=== PATIENT | female | born 1975 | race Hispanic/Latino ===

== ENCOUNTER 2018-07-01 09:22 | Emergency (ER) | payer OTHER ==
[2018-07-01 09:48] LABS: Clarity Hazy (Clear); Glucose, Urine (Dipstick) 500 mg/dL (Negative); Leukocyte Moderate (Negative); Nitrite Negative (Negative); Protein, Urine (Dipstick) Negative (Neg-Trace); Urobilinogen 0.2 mg/dL (0.2-1.0); pH, Urine 6.5 (5.0-9.0)
[2018-07-01 09:49] LABS: Bilirubin Negative (Negative); Blood, Urine Moderate (Negative); RBC/HPF 0-3 HPF (0-3)
[2018-07-01 09:50] LABS: Bacteria/HPF 3+ HPF (None Seen); Squamous Epithelial 0-3 HPF (0-3)
== END 2018-07-01 10:06 | disposition home or self-care (01) ==
LOC: BURERS 09:22
DX: N12 Tubulo-interstitial nephritis, not specified as acute or chronic (principal); E11.9 Type 2 diabetes mellitus without complications
CPT/HCPCS: 81003; 81015; 99283

== ENCOUNTER 2019-09-11 10:06 | Outpatient (CLI) | payer OTHER ==
--- NOTE | 2019-09-11 16:20 | RAD ---
CERVICAL SPINE THREE VIEWS: 09/11/19 Lateral views are submitted in flexion and extension as well as a swimmer's view. Comparison is made with the 06/07/19 study. In the interval, the patient has had an anterior cervical fusion at C5-C6 with placement of a synthet ic disc. There is no abnormal motion with flexion and extension. The postoperative appearance is as e xpected. The remainder of the cervical spine was unremarkable in appearance. IMPRESSION: Expected postoperative appearance. POS: HOME
== END 2019-09-11 10:07 | disposition home or self-care (01) ==
LOC: BURRAD 10:06
PROVIDERS: ATTEND Neurological Surgery
DX: M54.12 Radiculopathy, cervical region (principal); Z98.1 Arthrodesis status
CPT/HCPCS: 72040